=== PATIENT | male | born 1975 | race Caucasian/White ===

== ENCOUNTER 2017-12-09 10:11 | Emergency (ER) | payer BC ==
--- NOTE | 2017-12-09 10:53 | UC ---
General HPI - HPI Summary HPI Summary: 42 yo male presents with headache, body aches, and fatigue for the last 3-4 days. He tells me that about 2 weeks ago was bitten by a tick on his right ankle and is unsure how long it was attached, but says it was really small and doesn't think it was engorged. 4 days ago he developed low back pain that "reminded him of when he had a kidney stone years ago", but the pain gradually improved. Since that time he has had diffuse joint pains affecting his knees, shoulders, and elbows. Also has had a headache and felt more tired recently. He is requesting to be tested for lyme disease. He never noticed a rash. Denies fever, chills, cough, SOB, chest pain, palpitations, GAO, abdominal pain, n/v/d/ c, or dysuria. - History of Current Complaint Chief Complaint: UCGeneralIllness Stated Complaint: LEG PAIN BODY PAIN Hx Obtained From: Patient Onset Severity: Moderate Current Severity: Mild Pain Intensity: 4 - Allergy/Home Medications Allergies/Adverse Reactions: Allergies Allergy/AdvReac Type Severity Reaction Status Date / Time MS Shellfish Allergy Allergy Rash Verified 01/21/16 21:46 [Shellfish Allergy] milk Allergy Stomach Uncoded 01/21/16 21:46 Cramps PMH/Surg Hx/FS Hx/Imm Hx - Additional Past Medical History Additional PMH: meniere's disease Cardiovascular History: Hypertension - Surgical History Surgical History: Yes Surgery Procedure, Year, and Place: HERNIA REPAIR, UMBILICAL REPAIR - Family History Known Family History: Positive: Cardiac Disease - Dad - Social History Occupation: Employed Full-time Lives: With Family Alcohol Use: None Substance Use Type: None Smoking Status (MU): Never Smoked Tobacco - Immunization History Most Recent Influenza Vaccination: January 2016 Review of Systems Constitutional: Fatigue, Other - Body aches Skin: Negative Eyes: Negative ENT: Negative Respiratory: Negative Cardiovascular: Negative Gastrointestinal: Negative Genitourinary: Negative Motor: Negative Neurovascular: Negative Musculoskeletal: Arthralgia Neurological: Headache Psychological: Negative All Other Systems Reviewed And Are Negative: Yes Physical Exam - Summary Physical Exam Summary: GENERAL: NAD. WDWN. No pain distress. SKIN: No rashes, sores, or open wounds. HEENT: Head: AT/NC Eyes: PERRLA. EOM intact. Conjunctiva clear without inflammation or discharge. Ears: Hearing grossly normal. TMs intact, no bulging, erythema, or edema. Nose: Nasal mucosa pink and moist. NTTP maxillary and frontal sinus. Throat: Posterior oropharynx without exudates, erythema, or tonsillar enlargement. Uvula midline. NECK: Supple. Nontender. No lymphadenopathy. CHEST: CTAB. No r/r/w. No accessory muscle use. Breathing comfortably and in no distress. CV: RRR. Without m/r/g. Pulses intact. Brisk cap refill. MSK: FROM in B/L UEs and LEs with symmetric strength. NEURO: Alert. CN II XII grossly intact. Dsnsas-ac-sqld are intact. Gait with normal base. Normal speech. No facial drooping. PSYCH: Age appropriate behavior. Triage Information Reviewed: Yes Vital Signs: Initial Vital Signs Temp 98 F 12/09/17 10:20 Pulse 92 12/09/17 10:20 Resp 18 12/09/17 10:20 BP 151/100 12/09/17 10:20 Pulse Ox 99 12/09/17 10:20 Laboratory Tests 12/09/17 12/09/17 11:31 11:36 POC Glucose (mg/dL) 98 POC Urine Color Yellow POC Urine Clarity Clear POC Urine pH 5.5 POC Ur Specif [place] >= 1.030 POC Urine Protein Negative POC Ur Glucose (UA) Negative POC Urine Ketones Trace A POC Urine Blood 1+ A POC Urine Nitrite Negative POC Urine Bilirubin Negative POC Urine Urobilinogen 0.2 POC U Leukocyte Esteras Negative Vital Signs Reviewed: Yes Course/Dx - Course Course Of Treatment: Glucose WNL. +1 blood on UA. Exam WNL. Given elevated HR, BP, and headache - I wanted to perform an EKG for pt, but he declined ekg. He tells me that he has had HTN for over 10 years, but was managing it well with a low salt diet and no longer needed medication. He did not want a CT at this time of abd/pel as his "kidney stone pain" had gone away. Labs drawn for CBC and lyme. Will call with results. Pt elected to start treatment for lyme disease now and will stop if results come back negative. - Differential Dx - Multi-Symptom Provider Diagnoses: Fatigue. Body aches. Joint pain Discharge - Sign-Out/Discharge Documenting (check all that apply): Patient Departure - Discharge Plan Condition: Stable Disposition: HOME Prescriptions: DOXYcycline CAP(*) [DOXYcycline 100MG CAP(*)] 100 mg PO BID #42 cap Patient Education Materials: Doxycycline (By mouth), Lyme Disease (ED), Tick Bite (ED) Referrals: Naseem Cadet MD [Primary Care Provider] - Additional Instructions: If you develop a fever, shortness of breath, chest pain, new or worsening symptoms - please call your PCP or go to the ED. Your blood pressure was high at todays visit. Please see your primary provider within 4 weeks for recheck and re-evaluation. - Billing Disposition and Condition Condition: STABLE Disposition: Home
[2017-12-09 11:28] VITALS: BP 160/98
[2017-12-09 16:32] LABS: Hematocrit 43 % (42-52); Hemoglobin 14.3 g/dl (14.0-18.0); Mean Corpuscular HGB Conc 33 g/dl (31-36); Mean Corpuscular Hemoglobin 29 pg (27-31); Mean Corpuscular Volume 88 fL (80-94); Platelet Count 242 10^3/ul (150-450); Red Cell Distribution Width 13 % (10.5-15); White Blood Count 7.8 10^3/ul (3.5-10.8)
[2017-12-09 17:08] LABS: ABS Basophils 0.1 10^3/ul (0-0.2); ABS Eosinophils 0 10^3/ul (0-0.6); ABS Lymphocytes 0.6 10^3/ul (1.0-4.8); ABS Monocytes 1.1 10^3/ul (0-0.8); ABS Nucleated RBC 0 10^3/ul; Eosinophil % 0.6 % (0-6); Lymphocyte % 8.2 % (25-47); Nucleated Red Blood Cells % 0.1
== END 2017-12-09 12:18 | disposition home or self-care (01) ==
LOC: UCEAST 10:11
DX: R53.83 Other fatigue (principal); M79.1 Myalgia; M25.562 Pain in left knee; M25.561 Pain in right knee; M25.512 Pain in left shoulder; M25.511 Pain in right shoulder; M25.522 Pain in left elbow; M25.521 Pain in right elbow; Z91.011 Allergy to milk products; Z91.013 Allergy to seafood; Z82.49 Family history of ischemic heart disease and other diseases of the circulatory system
CPT/HCPCS: 36415; 81003; 85025; 86618; 99212; G0463